=== PATIENT | male | born 1955 | race Caucasian/White ===

== ENCOUNTER 2016-11-24 11:12 | Day surgery (SDC) | payer BC ==
[2016-11-20 11:54] VITALS: BMI 34.0
[~2016-11-24 11:12] MED LIST: LACTATED RINGERS 1,000 ML IV SCH
[2016-11-24 11:37] VITALS: RESP 16; TEMP 98
[2016-11-24] MEDS ORDERED: PROPOFOL 10 MG/ML 20 ML VIAL IV ONE (12:09)
--- NOTE | 2016-11-24 12:36 | P.PCN ---
Date of Procedure: 11/24/16 Procedure(s) Performed: Procedure: Total colonoscopy. Preoperative diagnosis: Screening for neoplasia. Postoperative diagnosis: Exam within normal limits. Preparation: HalfLytely prep. Sedation: Was provided by anesthesia. Brief clinical history: The patient is a 61-year-old male who is scheduled for this evaluation because of age as his risk factor, for screening for neoplasia. There is no family history of colon cancer. He has no abdominal complaints, bleeding or anemia. His prior colonoscopy was around 10-11 years ago. Procedure: With the patient on his left lateral decubitus position and after informed consent and adequate sedation, the perianal area was inspected and it did not show any fissures or fistulas. There were no masses felt on digital rectal examination. The Olympus CFQ 160L video colonoscope was then inserted in the rectum in the usual fashion and advanced to the cecum. The mucosa appeared healthy. No polyps or tumors were seen or any obvious diverticular disease or other pathology. I retroflexed the endoscope in the rectum before the endoscope was withdrawn. The patient tolerated the procedure well. Plan: The patient was reassured. He will follow up with you as planned and I recommended repeat exam in 10 years.
[2016-11-24 12:53] VITALS: BP 131/86; PULSE 63
== END 2016-11-24 13:09 | disposition home or self-care (01) ==
LOC: ORWHC2ENDO 11:12
DX: Z12.11 Encounter for screening for malignant neoplasm of colon (principal); I10 Essential (primary) hypertension; E78.5 Hyperlipidemia, unspecified; E07.9 Disorder of thyroid, unspecified; Z79.2 Long term (current) use of antibiotics; Z79.51 Long term (current) use of inhaled steroids; Z79.899 Other long term (current) drug therapy; Z85.46 Personal history of malignant neoplasm of prostate; Z91.013 Allergy to seafood
CPT/HCPCS: J2704; G0121; 45378

== ENCOUNTER → 2017-04-21 | Outpatient (CLI) | payer BC ==
--- NOTE | 2017-04-21 12:51 | CT ---
EXAMINATION TYPE: CT chest wo con DATE OF EXAM: 04/21/2017 COMPARISON: NONE HISTORY: Patient complains of cough and chest congestion unresponsive to treatment. CT DLP: [address] of the chest was performed with lung and mediastinal window settings submitted. The la ck of contrast limits evaluation of the vascular, mediastinal and parenchymal structures including th e upper abdomen. LUNGS: The lungs are clear and free of infiltrate. Linear basilar atelectasis. No pulmonary nodule o r mass is detected. No pleural effusion. No CT evidence of interstitial lung disease. MEDIASTINUM/ARACELI: Thoracic aorta is of normal caliber with limited evaluation given lack of contrast . The heart is not enlarged. No evidence for mediastinal mass. No lymph nodes greater than 1cm. UPPER ABDOMEN: No significant abnormality is seen. OTHER: No significant other abnormality. IMPRESSION: 1. The lungs are clear and free of infiltrate. Linear basilar atelectasis.
== END | disposition home or self-care (01) ==
LOC: RADCTMAIN 11:18
PROVIDERS: ATTEND Family Medicine
DX: J98.11 Atelectasis (principal)
CPT/HCPCS: 71250

== ENCOUNTER → 2017-04-21 | Outpatient (CLI) | payer BC ==
--- NOTE | 2017-04-21 09:02 | XR ---
EXAMINATION TYPE: XR chest 2V DATE OF EXAM: 04/21/2017 COMPARISON: NONE HISTORY: Cough for 10 days. TECHNIQUE: Frontal and lateral views of the chest are obtained. FINDINGS: There is elevated left hemidiaphragm with tiny left pleural effusion as there is blunting of left costophrenic angle and left basilar linear and increased opacity consistent with atelectasis and/or infiltrate. The right lung is clear.. The cardiac silhouette size is mildly enlarged. The o sseous structures are intact. IMPRESSION: Mild cardiomegaly with tiny left pleural effusion and left basilar infiltrate and more s uperior linear atelectasis.
== END | disposition home or self-care (01) ==
LOC: RADXRMAIN 08:24
PROVIDERS: ATTEND Family Medicine
DX: I51.7 Cardiomegaly (principal); J98.11 Atelectasis; R91.8 Other nonspecific abnormal finding of lung field
CPT/HCPCS: 71046

== ENCOUNTER → 2019-05-04 | Outpatient (CLI) | payer BC ==
--- NOTE | 2019-05-04 15:24 | US ---
EXAMINATION TYPE: US extremity nonvasc mass RT DATE OF EXAM: 05/04/2019 COMPARISON: NONE CLINICAL HISTORY: R33.21 RIGHT SHOULDER SWELLING. Hyperechoic oval structure at patients palpable right shoulder mass. Probable lipoma. IMPRESSION: Findings compatible with lipoma
== END | disposition home or self-care (01) ==
LOC: RADUSWWP 14:50
PROVIDERS: ATTEND Family Medicine
DX: M25.411 Effusion, right shoulder (principal)

== ENCOUNTER → 2021-12-16 | Outpatient (CLI) | payer MEDICARE ==
--- NOTE | 2021-12-16 11:00 | XR ---
EXAMINATION TYPE: XR foot limited RT DATE OF EXAM: 12/16/2021 10:27 AM INDICATION: Patient age:Male; 66 years old; Reason for study: [id number]; [facility]. COMPARISON: None TECHNIQUE: The right foot was examined in the AP and lateral projections.. FINDINGS: No evidence of any acute osseous pathology. No evidence of soft tissue swelling. Joints are preserve d. Vascular sclerosis. IMPRESSION: No evidence of acute fracture.
--- NOTE | 2021-12-16 11:03 | XR ---
EXAMINATION TYPE: XR cervical spine limited DATE OF EXAM: 12/16/2021 10:27 AM INDICATION: Patient age:Male; 66 years old; Reason for study: [id number]; [facility]. COMPARISON: TECHNIQUE: The cervical spine was imaged in 4 projections. Frontal, lateral, odontoid and swimmer's p rojections. FINDINGS: The osseous structures show normal alignment without evidence of an acute fracture. There are osteoph ytes noted throughout the cervical spine on the anterior and lateral aspects of the vertebral bodies. The intervertebral disk spaces are preserved. Pedicles are intact. Soft tissues are within normal limits. The odontoid appears intact. IMPRESSION: 1. No fracture or dislocation. 2. Mild degenerative disc disease changes of the cervical spine.
--- NOTE | 2021-12-16 11:19 | XR ---
EXAMINATION TYPE: XR lumbar spine 2 or 3V DATE OF EXAM: 12/16/2021 CLINICAL HISTORY: [id number], numbness down his right arm and right leg. TECHNIQUE: Three views of the lumbar spine are submitted. COMPARISON: None. FINDINGS: There are 5 lumbar type vertebral bodies identified. The lumbar spine shows satisfactory alignment w ithout evidence of acute fracture or dislocation. Vertebral body heights are within normal limits. Mild disc space narrowing most pronounced at L5-S1. L4-L5 and L5-S1 endplate sclerosis. Multilevel an terior osteophytosis. The overlying soft tissue appears unremarkable. IMPRESSION: 1. No acute fracture or dislocation is seen in the lumbar spine. 2. Mild degenerative disc disease.
== END | disposition home or self-care (01) ==
LOC: RADXRMAIN 09:49
PROVIDERS: ATTEND Family Medicine
DX: M50.30 Other cervical disc degeneration, unspecified cervical region (principal); M51.26 Other intervertebral disc displacement, lumbar region; M79.2 Neuralgia and neuritis, unspecified; M79.671 Pain in right foot
CPT/HCPCS: 72040; 72100

== ENCOUNTER → 2022-01-01 | Outpatient (CLI) | payer MEDICARE ==
--- NOTE | 2022-01-01 09:26 | CT ---
EXAMINATION TYPE: CT lumbar spine wo con DATE OF EXAM: 01/01/2022 8:46 AM COMPARISON: X-ray lumbar spine December 16, 2021. HISTORY: Pain mostly on right side after activity. CT DLP: 1523.0 mGycm Automated exposure control for dose reduction was used. Unenhanced CT of the lumbar spine was performed. Bone and soft tissue window settings are submitted as well as coronal and sagittal reconstructions. There are 5 lumbar-type vertebra present. Dqmr-sv-[id number] disc space narrowing and anterior spurring at L2-L3 level. Mild disc space narrowing with vacuum disc phenomenon and mild anterior and lateral spurring at L4-L5 level. Mild to moderate spurring and mild disc space narrowing at L3-L4 level. Alig nment is satisfactory and stable. Vertebral body heights are preserved. Axial images show T12-L1 and L1-L2 level to appear within normal limits. Axial images at L2-L3 level show mild to moderate broad disc bulge mildly effaces the anterior thecal sac along with mild facet arthropathy bilaterally. Mild bilateral anterior inferior neural foraminal narrowing is seen. Axial images at L3-L4 level show [id number] broad-based right paracentral/foraminal disc protru kia effacing anterolateral thecal sac with mild facet arthropathy bilaterally. There is mild bilater al anterior inferior neural foraminal narrowing. Axial images at L4-L5 level moderate broad disc bulge along with [id number] facet arthropathy b ilaterally. There is mild effacement anterior thecal sac. There is mild to moderate bilateral anterio r inferior neural foraminal narrowing. Axial images at the L5-S1 level shows broad-based right paracentral disc protrusion. There is mild-to -moderate facet arthropathy bilaterally. Bilateral neural foramina are patent. Portions of normal-appearing appendix noted near axial image 56. There is exophytic 9 mm round hyperd ense lesion from the lower pole left kidney favoring proteinaceous cyst but nonspecific axial image 4 6. A few sigmoid colonic diverticula are partially imaged. IMPRESSION: Multilevel degenerative changes in the lumbar spine as detailed above.
--- NOTE | 2022-01-01 09:29 | CT ---
EXAMINATION TYPE: CT cervical spine wo con DATE OF EXAM: 01/01/2022 COMPARISON: X-ray cervical spine Limited December 16, 2021 HISTORY: Numbness in arms/hands x a few months CT DLP: 855.3 mGycm. Automated Exposure Control for Dose Reduction was Utilized. TECHNIQUE: CT scan of the cervical spine is obtained without contrast, axial images are obtained, sa gittal and coronal reformatted images are also reviewed. FINDINGS: Cervical spine is visualized in its entirety from C1 through upper thoracic levels, demonst rates slight grade 1 retrolisthesis C3 on C4 without evidence of acute fracture or dislocation. Prev ertebral soft tissue appears within normal limits. The C1-C2 articulation is within normal limits on the coronal images. Vertebral body heights and disc space heights are maintained. Spinal canal gross ly preserved. Axial images at C3-C4 levels show spondylolisthesis with broad-based left paracentral disc protrusion mildly effaces anterior thecal sac and causing moderate to severe right-sided neural foraminal narro wing due to foraminal component on axial image 55. Remainder axial levels appear within normal limits . Thyroid gland is felt within normal limits. Visualized lung apices are clear. Mild calcified plaque bilateral carotid bulb level. IMPRESSION: Spondylolisthesis and degenerative change C3-C4 level as detailed above. . Consider MRI follow-up to better evaluate/confirm suspected CT findings.
== END | disposition home or self-care (01) ==
LOC: RADCTMAIN 08:15
PROVIDERS: ATTEND Family Medicine
DX: M47.816 Spondylosis without myelopathy or radiculopathy, lumbar region (principal); M47.812 Spondylosis without myelopathy or radiculopathy, cervical region; M43.12 Spondylolisthesis, cervical region
CPT/HCPCS: 72125; 72131

== ENCOUNTER → 2024-04-07 | Outpatient (CLI) | payer MEDICARE ==
[2024-04-07 10:58] LABS: Influenza A Not Detected (Not Detectd); Influenza B Not Detected (Not Detectd); RSV Detected (Not Detectd)
== END | disposition home or self-care (01) ==
LOC: LABWHC1 09:50
PROVIDERS: ATTEND Family Medicine
DX: Z20.822 Contact with and (suspected) exposure to COVID-19 (principal); B89 Unspecified parasitic disease
CPT/HCPCS: 87636

== ENCOUNTER 2024-08-25 07:54 | Day surgery (SDC) | payer MEDICARE ==
[2024-08-23 14:25] VITALS: BMI 34.4
[2024-08-25] MEDS: LIDOCAINE 1% (10MG/ML) FOR IV START INTRADERMA PRN (08:35)
[2024-08-25] MEDS: LACTATED RINGERS 1,000 ML IV SCH (08:35)
[2024-08-25] MEDS: IV FLUID CONTINUATION 1,000 ML IV ONE (08:35)
[2024-08-25 08:38] VITALS: TEMP 97.2
[2024-08-25] MEDS ORDERED: LIDOCAINE 2% (PF) 20 MG/ML 5 ML VIAL ONE (08:47)
[2024-08-25] MEDS ORDERED: PROPOFOL 10 MG/ML 20 ML VIAL IV ONE (08:47)
--- NOTE | 2024-08-25 09:19 | P.PCN ---
Date of Procedure: 08/25/24 Preoperative Diagnosis: GERD Screening Postoperative Diagnosis: Gastritis Hiatal hernia Ascending colon polyp Procedure(s) Performed: EGD with biopsy Colonoscopy with hot snare polypectomy Anesthesia: MAC Surgeon: Michelle Ugarte Pathology: other (The biopsy of antrum, duodenum, GE junction, polyp was sent of the ascending colon) Condition: stable Disposition: same day Indications for Procedure: 68-year-old male presents today for upper and lower endoscopy. He has history of GERD with occasional relief with Pepcid. He also has occasional issues with dysphagia. He also presents for screening colonoscopy. He denies any blood in his stool. Risks, benefits and alternatives were provided to the patient. All questions answered. Operative Findings: Small hiatal hernia Gastritis Ascending colon Description of Procedure: The patient was brought into the endoscopy suite and placed in left lateral decubitus position. Adequate sedation was achieved using conscious sedation. A bite-block was placed and an endoscope was placed in the oropharynx and advanced under endoscopic visualization. The endoscope was advanced through the esophagus into the stomach, through the gastric antrum and in through the pylorus. The third portion of duodenum was visualized. The endoscope was then slowly withdrawn. The first portion of duodenum was noted to have mild inflammatory changes. Biopsies were taken. The antrum was noted to have mild inflammatory changes. Biopsies were taken. The gastric body distended normally and the gastric folds appeared normal and flattened with insufflation. A retroflexed view of the fundus and GE junction revealed small hiatal hernia. GE junction appeared normal and biopsies were taken. The esophagus appeared endoscopically normal. Excess air was removed and the scope was withdrawn. Digital rectal exam was performed and mild internal hemorrhoids were palpated. An endoscope was then placed in the rectum and advanced to the cecum as identified by landmarks including the appendiceal orifice and the ileocecal valve. The prep was good. The colonoscope was then slowly withdrawn, examining for any mucosal abnormalities. The cecum, ascending, transverse, descending and sigmoid colon were visualized adequately. There were no large neoplastic lesions noted throughout the colon. Small polyp was noted in the ascending colon. This was removed with hot snare polypectomy. Hemostasis was maintained. No evidence of diverticulosis retroflexion was performed in the rectum and internal hemorrhoid. Excess air was removed, the colonoscope withdrawn and the procedure terminated. The patient was then transferred to the recovery unit in stable condition. Repeat colonoscopy should be performed in 5 years.
[2024-08-25 09:43] VITALS: BP 116/63; PULSE 78; RESP 18
== END 2024-08-25 09:59 | disposition home or self-care (01) ==
LOC: ORWHC2ENDO 07:54
PROVIDERS: ATTEND Surgery
DX: Z12.11 Encounter for screening for malignant neoplasm of colon (principal); D12.2 Benign neoplasm of ascending colon; K21.00 Gastro-esophageal reflux disease with esophagitis, without bleeding; K29.70 Gastritis, unspecified, without bleeding; K44.9 Diaphragmatic hernia without obstruction or gangrene
CPT/HCPCS: 88305; 45380; 45385; 43239; J2704; J2003

== ENCOUNTER → 2024-09-04 | Outpatient (CLI) | payer MEDICARE ==
--- NOTE | 2024-09-04 12:21 | MR ---
EXAMINATION TYPE: MR Prostate wo/w con DATE OF EXAM: 09/04/2024 11:11 AM COMPARISON: None. CLINICAL INDICATION: Male, 68 years old with history of R97.20 ELEVATED PSA; Elevated PSA. TECHNIQUE: Multi-planar, multi-sequence imaging of the pelvis is performed prior to and following the uncomplicated administration of bolus intravenous gadolinium. IV Contrast: 11 mL Gadobutrol Interpretive Criteria: PI-RADS v2.1 SERUM PSA: 08-04-24 = 5.13 Mar 2024 = 3.9 SURGICAL PATHOLOGY: No data available. FINDINGS: Prostatic dimensions: 5.7 x 5.0 x 4.4 cm. Ellipsoid Volume:65.66 (PSA density=0.08 ng/mL/mL) CENTRAL GLAND (Central and Transition Zones/CZ+TZ): Multiple bilateral, heterogenous appearing hypertrophic stromal nodules, without suspicious lesion. M edian lobe hypertrophy with protrusion into the base of the bladder. (PI-RADS 2) PERIPHERAL ZONE (PZ): IUD DWI low ADC low T2 signal lesion right posterior peripheral gland apex/mid gland with some arteri al enhancement measuring 13 x 9 x 7 mm . (PI-RADS 4) SEMINAL VESICLES (SV): Symmetric and unremarkable. PERIPROSTATIC TISSUES: Unremarkable. LYMPH NODES: No enlarged pelvic lymph node. REMAINING PELVIS: Bladder wall is within normal limits given distention. No abnormal free or organized intrapelvic fluid collection. No pathologic bowel dilation or mural thickening. Bilateral fat containing inguinal hernias. OSSEOUS STRUCTURES: No suspicious osseous abnormality. IMPRESSION: 1. PI-RADS 4 Lesion in the right peripheral zone, apex/mid gland measuring 13 x 9 mm. 2. Moderate BPH, estimated gland volume 65.66 (PSA density=0.08 ng/mL/mL) 3. No suspicious osseous lesion. No lymphadenopathy. No evidence of prostate adenocarcinoma involving the periprostatic tissues. [facility], , 09/04/2024 12:18 PM
== END | disposition home or self-care (01) ==
LOC: RADMRIMAIN 09:53
PROVIDERS: ATTEND Family Medicine
DX: R97.20 Elevated prostate specific antigen [PSA] (principal); N40.0 Benign prostatic hyperplasia without lower urinary tract symptoms
CPT/HCPCS: 72197; A9585